=== PATIENT | female | born 1950 | race Caucasian/White ===

== ENCOUNTER 2018-02-28 20:08 | Emergency (ER) | payer OTHER, MEDICARE ==
[2018-02-28] MEDS ORDERED: ONDANSETRON 4 MG/2 ML VIAL IVP ONE ×2 (20:12→21:41)
[2018-02-28] MEDS ORDERED: ONDANSETRON 4 MG/2 ML VIAL ONE (20:12)
[2018-02-28] MEDS ORDERED: HYDROmorphONE/DILAUDID 2 MG/ML INJ IVP ONE (20:12)
[2018-02-28] MEDS ORDERED: NS 1,000 ML IV ONE ×2 (20:12→22:27)
--- NOTE | 2018-02-28 20:14 | EDPHY ---
H & P Time Seen by Provider: 02/28/18 20:12 HPI/ROS: CHIEF COMPLAINT: Elbow dislocation HISTORY OF PRESENT ILLNESS: The patient is a 67-year-old female who was rock climbing and fell approximately 10-12 feet onto an outstretched right arm. She had a elbow dislocation. This happened just prior to arrival. Neurovascular intact distally. She denies shoulder neck or head pain. She denies other injuries. REVIEW OF SYSTEMS: Constitutional: denies: chills, fever, recent illness, recent injury EENTM: denies: blurred vision, double vision, nose congestion Respiratory: denies: cough, shortness of breath Cardiac: denies: chest pain, irregular heart rate, lightheadedness, palpitations Gastrointestinal/Abdominal: denies: abdominal pain, diarrhea, nausea, vomiting, blood streaked stools Genitourinary: denies: dysuria, frequency, hematuria, pain Musculoskeletal: See HPI Skin: denies: lesions, rash, jaundice, bruising Neurological: denies: headache, numbness, paresthesia, tingling, dizziness, weakness Hematologic/Lymphatic: denies: blood clots, easy bleeding, easy bruising Immunologic/allergic: denies: HIV/AIDS, transplant EXAM: GENERAL: Well-appearing, well-nourished and in no acute distress. HEAD: Atraumatic, normocephalic. EYES: Pupils equal round and reactive to light, extraocular movements intact, sclera anicteric, conjunctiva are normal. ENT: TMs normal, nares patent, oropharynx clear without exudates. Moist mucous membranes. NECK: Normal range of motion, supple without lymphadenopathy or JVD. LUNGS: Breath sounds clear to auscultation bilaterally and equal. No wheezes rales or rhonchi. HEART: Regular rate and rhythm without murmurs, rubs or gallops. ABDOMEN: Soft, nontender, normoactive bowel sounds. No guarding, no rebound. No masses appreciated. BACK: No CVA tenderness, no spinal tenderness, step-offs or deformities EXTREMITIES: Right elbow deformity, neurovascular intact distally. No shoulder pain. NEUROLOGICAL: Cranial nerves II through XII grossly intact. Normal speech, normal gait. 5/5 strength, normal movement in all extremities, normal sensation PSYCH: Normal mood, normal affect. SKIN: Warm, dry, normal turgor, no visible rashes or lesions. Source: Patient Exam Limitations: No limitations - Medical/Surgical History Hx Asthma: No Hx Chronic Respiratory Disease: No Hx Diabetes: No Hx Cardiac Disease: No Hx Renal Disease: No Hx Cirrhosis: No Hx Alcoholism: No - Family History Significant Family History: No pertinent family hx - Social History Smoking Status: Never smoked Alcohol Use: Sober Drug Use: None Constitutional: Initial Vital Signs Temperature (C) 36.6 C 02/28/18 20:15 Heart Rate 78 02/28/18 20:15 Respiratory Rate 18 02/28/18 20:15 Blood Pressure 110/61 02/28/18 20:15 O2 Sat (%) 96 02/28/18 20:15 O2 Delivery Mode Room Air O2 (L/minute) 2 Allergies/Adverse Reactions: Sulfa (Sulfonamide Antibiotics) Allergy (Verified 02/28/18 20:14) Home Medications: Medication Instructions Recorded Hydrocodone/APAP 5/325 [[place] 1 - 2 tab PO Q4H PRN #10 tab 02/28/18 5/325 (RX)] Medical Decision Making - Diagnostics Imaging: Discussed imaging studies w/ certified control systems technician Radiologist Procedures: Procedure: Procedural sedation. Indication: Elbow reduction. A pre-sedation evaluation was completed on the patient just prior to the procedure. Patient is an appropriate candidate for procedural sedation with a normal 3-3-2 rule assessment and a Mallampati airway score of class 1. The risks of the sedation were discussed including but not limited to dysrhythmia, need for airway intervention or general anesthesia, disability, ; and verbal consent obtained. A timeout was observed and patient's identity confirmed. The patient was sedated with ketamine and propofol. The patient was monitored with continuous pulse oximetry, capnography, and auto carrier driver. There were no complications and no significant hypoxemia. I remained at the bedside for the sedation. The total time I spent in the procedural sedation was 16 minutes. Orthopedic reduction: Patient's elbow was reduced with traction. It was unstable and had to be reduced twice. I used the C-arm intra procedure Procedure: Splint placement. A posterior arm splint and sling was applied. After application of the splint I returned and re-examined the patient. The splint was adequately immobilizing the joint and distal to the splint the patient's circulation and sensation was intact. ED Course/Re-evaluation: 9:30 p.m. the patient is doing much better. Her arm is in a splint and stable. We discussed follow-up with Orthopedics for possible surgery. She initially declined opiate prescription but then decided she would like to have some just in case. Discussed rest elevation and ice. We discussed indications for returning. She has an orthopedist worked on her left wrist several years ago and will follow up with them. 10:20 p.m. the patient is retching post sedation. She has received 2 doses of Zofran. I will treat her with a small dose of Haldol and Benadryl. Differential Diagnosis: Partial list of the Differential diagnosis considered include but were not limited to; elbow dislocation, fracture and although unlikely based on the history and physical exam, I also considered vascular injury, nerve injury, wrist injury, shoulder injury. I discussed these differential diagnoses and the plan with the patient as well as the usual and expected course. The patient understands that the diagnosis is provisional and that in medicine we are not always correct and that further workup is often warranted. Usual and customary warnings were given. All of the patient's questions were answered. The patient was instructed to return to the emergency department should the symptoms at all worsen or return, otherwise to followup with the physician as we discussed. - Data Points Medications Given: Discontinued Medications Diphenhydramine HCl (Benadryl Injection) 25 mg IVP EDNOW ONE Stop: 02/28/18 22:25 Last Admin: 02/28/18 22:27 Dose: 25 mg Haloperidol Lactate (Haldol Injection) 2.5 mg IVP EDNOW ONE Stop: 02/28/18 22:25 Last Admin: 02/28/18 22:27 Dose: 2.5 mg Hydromorphone HCl (Dilaudid) 1 mg IVP EDNOW ONE Stop: 02/28/18 20:13 Last Admin: 02/28/18 20:18 Dose: 1 mg Sodium Chloride (Ns) 1,000 mls @ 0 mls/hr IV ONCE ONE; Wide Open PRN Reason: Protocol Stop: 02/28/18 20:13 Last Admin: 02/28/18 20:20 Dose: 1,000 mls Sodium Chloride (Ns) 1,000 mls @ 0 mls/hr IV ONCE ONE; Wide Open PRN Reason: Protocol Stop: 02/28/18 22:28 Last Admin: 02/28/18 22:28 Dose: 1,000 mls Ketamine HCl (Ketamine) 60 mg IVP EDNOW ONE Stop: 02/28/18 20:40 Last Admin: 02/28/18 20:50 Dose: 60 mg Ondansetron HCl (Zofran) 4 mg IVP EDNOW ONE Stop: 02/28/18 20:13 Last Admin: 02/28/18 20:17 Dose: 4 mg Ondansetron HCl (Zofran) 4 mg IVP EDNOW ONE Stop: 02/28/18 21:42 Last Admin: 02/28/18 21:42 Dose: 4 mg Propofol (Diprivan) 30 mg IVP EDNOW ONE Stop: 02/28/18 20:40 Last Admin: 02/28/18 20:50 Dose: 30 mg Departure - Departure Disposition: Home, Routine, Self-Care Clinical Impression: Dislocation of elbow, right, closed Qualifiers: Encounter type: initial encounter Qualified Code(s): S53.104A - Unspecified dislocation of right ulnohumeral joint, initial encounter Condition: Fair Instructions: Elbow Dislocation (ED), Elbow Fracture (ED) Referrals: Patient,NotPresent [Unknown] - As per Instructions Meño Doll MD [Medical Doctor] - 5-7 days, call for appt. Prescriptions: Hydrocodone/APAP 5/325 [[place] 5/325 (RX)] 1 - 2 tab PO Q4H PRN #10 tab PRN Reason: Pain, Moderate
[2018-02-28] MEDS ORDERED: HYDROmorphONE/DILAUDID 2 MG/ML INJ ONE (20:15)
[2018-02-28] MEDS ORDERED: PROPOFOL 200 MG/20 ML VIAL ONE (20:29)
[2018-02-28] MEDS ORDERED: KETAMINE 500 MG/10 ML VIAL ONE (20:29)
[2018-02-28] MEDS ORDERED: KETAMINE 200 MG/20 ML VIAL IVP ONE (20:39)
[2018-02-28] MEDS ORDERED: PROPOFOL 200 MG/20 ML VIAL IVP ONE (20:39)
[2018-02-28] MEDS ORDERED: HALOPERIDOL LACT 5 MG/ML INJ ONE (22:19)
[2018-02-28] MEDS ORDERED: HALOPERIDOL LACT 5 MG/ML INJ IVP ONE (22:24)
[2018-02-28 23:06] VITALS: BP 111/63
== END 2018-02-28 23:40 | disposition home or self-care (01) ==
DX: S53.124A Posterior dislocation of right ulnohumeral joint, initial encounter (principal); E86.9 Volume depletion, unspecified; W17.89XA Other fall from one level to another, initial encounter; Y99.8 Other external cause status; Y93.31 Activity, mountain climbing, rock climbing and wall climbing
CPT/HCPCS: 24600; 73070; 73080; J1170; J1200; J1630; J2405; J2704; L3980; 96374